=== PATIENT | male | born 1985 | race Caucasian/White ===

== ENCOUNTER → 2018-08-18 | Outpatient (CLI) | payer BC ==
--- NOTE | 2018-08-18 16:16 | MR ---
EXAMINATION TYPE: MR brain wo con DATE OF EXAM: 08/18/2018 COMPARISON: NONE HISTORY: Bilateral headaches / Dysequilibrium TECHNIQUE: Multiplanar, multisequence imaging of the brain and brainstem is performed without IV cont rast. FINDINGS: Diffusion weighted images demonstrate no evidence of a recent infarct or other diffusion abnormality. There is no extraaxial fluid collection or significant white matter signal abnormality. The ventricu lar system and cisternal spaces are normal in size and appearance. The brain volume is age appropria te. Midline structures demonstrate normal morphology. The craniocervical junction appears within normal limits. Normal vascular flow voids are present. Dominant left vertebral artery incidentally noted. So me fluid is seen inferiorly in the right maxillary sinus otherwise paranasal sinuses are clear. This is more ovoid appearance favoring polyp or cyst on coronal images given nonlayering appearance on axi al images. Nasal septum is deviated to left of midline. The globes are intact bilaterally. No suspici ous fluid signal seen in mastoid air cells bilaterally. IMPRESSION: No significant finding seen to account for patient's symptoms of headache and disequilibr ium.
== END | disposition home or self-care (01) ==
LOC: RADMRIMAIN 15:35
PROVIDERS: ATTEND Psychiatry & Neurology Neurology
DX: S16.1XXD Strain of muscle, fascia and tendon at neck level, subsequent encounter (principal); R42 Dizziness and giddiness
CPT/HCPCS: 70551

== ENCOUNTER → 2019-05-31 | Outpatient (CLI) | payer BC ==
--- NOTE | 2019-05-31 10:12 | US ---
EXAMINATION TYPE: US abdomen complete DATE OF EXAM: 05/31/2019 COMPARISON: NONE CLINICAL HISTORY: K81.9 Cholecystitis, unspecified. EXAM MEASUREMENTS: Liver Length: 13.2 cm Gallbladder Wall: 0.2 cm CBD: 0.5 cm Spleen: 10.7 cm Right Kidney: 11.2 X 4.1 X 5.6 cm Left Kidney: 10.4 X 5.1 X 5.0 cm Pancreas: Tail obscured by overlying bowel gas Liver: wnl Gallbladder: wnl Evidence for sonographic Merritt's sign: no CBD: wnl Spleen: wnl Right Kidney: No hydronephrosis or masses seen Left Kidney: No hydronephrosis or masses seen Upper IVC: wnl Abd Aorta: bifurcation obscured, otherwise wnl IMPRESSION: 1. Normal abdomen ultrasound
== END | disposition home or self-care (01) ==
LOC: RADUSWWP 08:50
PROVIDERS: ATTEND Family Medicine
DX: K81.9 Cholecystitis, unspecified (principal)
CPT/HCPCS: 76700

== ENCOUNTER → 2020-06-05 | Outpatient (CLI) | payer BC | END | disposition home or self-care (01) | LOC: LABMAIN 14:57 | PROVIDERS: ATTEND Physician Assistant | DX: U07.1 COVID-19 (principal) | CPT/HCPCS: 87635 ==

== ENCOUNTER → 2021-01-25 | Outpatient (CLI) | payer BC | END | disposition home or self-care (01) | LOC: LABMAIN 12:04 | PROVIDERS: ATTEND Physician Assistant | DX: Z20.822 Contact with and (suspected) exposure to COVID-19 (principal) | CPT/HCPCS: 87635 ==